=== PATIENT | female | born 1950 | race Caucasian/White ===

== ENCOUNTER → 2018-01-26 10:32 | Outpatient (CLI) | payer BC, SELFPAY ==
--- NOTE | 2018-01-26 10:36 | US_ITS ---
STUDY: SUPERFICIAL ULTRASOUND - LIMITED REASON FOR EXAM: Female, 67 years old. Left axillary lump for one week. TECHNIQUE: A superficial ultrasound was performed with real-time and static dupree-scale imaging. COMPARISON: None. FINDINGS: Adjacent to the axilla corresponding to the palpable abnormality reported by the patient is a 2.2 x 1.8 x 0.9 cm sharply marginated hypoechoic mass slightly more echogenic than the adjacent muscle. No posterior shadowing or posterior enhancement. US/Ext Non Vasc Limited/Soft Tiss IMPRESSION: 2.2 cm palpable mass adjacent to the left axilla probably representing a lymph node or other benign finding. Correlate with clinical exam. Correlate with mammogram if available. Electronically Signed: Jaylen Mendez MD at 4:12 EDT , Service support ,
== END ==
PROVIDERS: Family Provider Internal Medicine; PCP Internal Medicine; Visit Provider Nurse Practitioner Gerontology
DX: R22.32 Localized swelling, mass and lump, left upper limb (principal)
CPT/HCPCS: 76882

== ENCOUNTER → 2018-02-04 08:44 | Outpatient (CLI) | payer MEDICARE, SELFPAY ==
--- NOTE | 2018-02-04 09:04 | BI_ITS ---
MAMMOGRAPHY - UNILATERAL DIAGNOSTIC: LEFT BREAST REASON FOR EXAM: Female, 67 years old. Left axillary mass. PERTINENT HISTORY: Sister with breast cancer. Mother with breast cancer. TECHNIQUE: Digital unilateral breast elpidio (3D mammographic acquisition) in the CC and MLO projections. 2-D mediolateral oblique (MLO) and craniocaudad (CC) views of both breasts were obtained. CAD: Full Field Digital Mammography with Computer Added Detection was performed. COMPARISON: Comparison is made with prior mammogram dated June 13, 2017 and May 30, 2016 as well as prior sonogram of the left axillary region dated January 26, 2018. FINDINGS: Breast Composition: The breasts are heterogeneously dense, which may obscure small masses. There is a 2 cm x 1.6 cm dense lymph node in the left axillary region. This corresponds to the palpable abnormality. A biopsy may be indicated. No other significant abnormalities are identified. BI/DIAG MAMM W/CAD, UNILAT IMPRESSION: 2 cm x 1.6 cm dense lymph node in the left axillary region as described. This corresponds to the palpable abnormality. A biopsy may be indicated. ASSESSMENT CATEGORY: BIRADS Category 4: Suspicious - Biopsy Should Be Considered. A letter regarding these results will be sent to the patient by the facility within 30 days. Approximately 10% of breast cancers are not detected by mammography. A normal mammogram should not delay biopsy of a clinically suspicious abnormality. Electronically Signed: Daniel Phillips MD at 10:33 EDT Tel [phone], Service support ,
== END ==
PROVIDERS: Family Provider Internal Medicine; PCP Internal Medicine; Visit Provider Nurse Practitioner Gerontology
DX: R92.2 Inconclusive mammogram (principal); Z80.3 Family history of malignant neoplasm of breast
CPT/HCPCS: 77061; 77065; G0279

== ENCOUNTER → 2018-02-16 15:23 | Outpatient (CLI) | payer MEDICARE, SELFPAY ==
--- NOTE | 2018-02-16 15:25 | RAD_ITS ---
STUDY: X-RAY CHEST REASON FOR EXAM: Female, 67 years old. Cough. TECHNIQUE: PA and lateral views of the chest. COMPARISON: PA and lateral views of the chest August 07, 2017. FINDINGS: Minimal linear scarring or subsegmental atelectasis seen in the inferior lingula of the left upper lobe. The lungs are otherwise clear and expanded. There is no demonstrated pleural abnormality. Normal size heart. Normal mediastinum and sheri. Normal visualized pulmonary arteries. There is stable minor atherosclerotic calcification of the aortic arch with tortuosity. Normal visualized thoracic spine. There is a stable mild levoscoliosis centered at L1-2. Normal visualized ribs, clavicles, and shoulders. A cluster of surgical clips is again seen in the medial right upper quadrant of the abdomen. RAD/Chest PA and Lateral IMPRESSION: No acute cardiopulmonary disease. Electronically Signed: Rigoberto Calle MD at 16:02 EDT , Service support ,
== END ==
PROVIDERS: Family Provider Internal Medicine; PCP Internal Medicine; Visit Provider Otolaryngology Otolaryngology/Facial Plastic Surgery
DX: R05 Cough (principal)
CPT/HCPCS: 71046

== ENCOUNTER → 2018-02-17 11:31 | Outpatient (CLI) | payer MEDICARE, SELFPAY ==
--- NOTE | 2018-02-17 08:30 | LYMN_PTH ---
PATIENT: LUCIO PINEDA [facility] U[facility][id number] AGE/SX: 75/F ROOM: RE02/17/[address]: Dr. Miko Milian MD : 1950 BED: DIS: SPEC #: [id number] RECD: 02/17/18 11:21 STATUS: HAMZAH REShari #: [id number] CHERELLE: 02/17/18 08:[address]: Miko Milian DEPT: SURGICAL PATHOLOGY RECD BY: Dk Garcia ENTERED: 02/17/18 12:25 SP TYPE: LYMPH NODE OTHR DR: Dr. Flory Hooks, Tissues: LYMPH NODE BIOPSY Procedures: Surgery Specimen Level IV HEADER OPERATION: Ultrasound-guided needle core biopsy left axillary; enlarged lymph node PRE-OP DIAGNOSIS: Enlarged lymph nodes in armpit TISSUE SUBMITTED: Needle core biopsy enlarged lymph node left axilla ISCHEMIC TIME: <30 seconds FIXATION TIME: 11 hours MICROSCOPIC DIAGNOSIS Left axilla, ultrasound-guided needle core biopsy: Fibrofatty tissue with focal minimal chronic inflammation. Focal minimal fat necrosis. No evidence of malignancy. AM:[place] 02/18/18 COMMENT There is no evidence of malignancy. Clinical correlation is suggested. MICROSCOPIC DESCRIPTION Slides are reviewed. GROSS DESCRIPTION Received in fixative is one container labeled with the patient's name and designated left axilla. The specimen consists of multiple irregular and elongated fragments of yellow-white soft tissue that in aggregate measure 1 x 0.3 x <0.1 cm. The specimen is totally submitted in one cassette. / AM:[place] 02/17/18 TC:5 CPT: 49659
== END ==
PROVIDERS: Family Provider Internal Medicine; PCP Internal Medicine; Visit Provider Surgery
DX: R59.0 Localized enlarged lymph nodes (principal)
CPT/HCPCS: 88305

== ENCOUNTER → 2018-07-22 11:03 | Outpatient (CLI) | payer MEDICARE, SELFPAY ==
--- NOTE | 2018-07-22 11:07 | BI_ITS ---
MAMMOGRAPHY - BILATERAL SCREENING REASON FOR EXAM: Female, 68 years old. Routine annual screening examination. PERTINENT HISTORY: Sister with breast cancer. Mother with breast cancer. TECHNIQUE: Digital bilateral breast elpidio (3D mammographic acquisition) in the CC and MLO projections. 2-D mediolateral oblique (MLO) and craniocaudad (CC) views of both breasts were obtained. CAD: Full Field Digital Mammography with Computer Added Detection was performed. COMPARISON: Comparison is made with prior examination June 13, 2017 and prior mammogram of the left breast dated February 04, 2018. FINDINGS: Breast Composition: The breasts are heterogeneously dense, which may obscure small masses. There are no dominant masses or suspicious calcifications. Focal area of architectural distortion is seen in the upper lateral portion of the left breast. The patient will be recalled for additional views including 90 degree lateral and compression spot views of the left breast. No other significant abnormalities are identified. BI/SCREENING MAMM (CAD), BILAT IMPRESSION: Questionable focal area of architectural distortion in the upper lateral portion of the left breast as described. The patient will be recalled for additional views. Recall Side: Left Breast ASSESSMENT CATEGORY: BIRADS Category 0: Incomplete. Need additional imaging evaluation. A letter regarding these results will be sent to the patient by the facility within 30 days. Approximately 10% of breast cancers are not detected by mammography. A normal mammogram should not delay biopsy of a clinically suspicious abnormality. [id number] Electronically Signed: Daniel Phillips MD at 12:47 EDT Tel [phone], Service support ,
--- NOTE | 2018-07-22 11:12 | BD_ITS ---
STUDY: DUAL ENERGY X-RAY ABSORPTIOMETRY / DXA REASON FOR EXAM: Female, 68 years old. Early menopause. No loss of height. TECHNIQUE: Bone Mineral Density (BMD) measurements of lumbar spine and left hip were obtained. The patient is status post right hip replacement. COMPARISON: None. FINDINGS: Lumbar Spine (L1-L4): g/cm2 (0.997) / T-score (-1.5) / Z-score (0.1) Findings are suggestive of osteopenia with a moderate fracture risk. Left Femur Total: g/cm2 (0.817) / T-score (-1.5) / Z-score (-0.1) Left Femoral Neck: g/cm2 (0.820) / T-score (-1.7) / Z-score (0.1) BD/Dexa Bone Density Study IMPRESSION: The patient is considered osteopenic as outlined below according to World Lionel Organization (WHO) criteria with a moderate fracture risk. Reference Information: The T-score is the number of standard deviations above or below the standard which is normal for young adults at their peak bone mineral density. The World Health Organization (WHO) interprets the T-scores as follows: Above -1 Normal bone density Between -1 and -2.5 Osteopenia Equal to / or below -2.5 Osteoporosis As a practical clinical guideline, osteopenia may be graded as follows: Mild -1 through -1.5 Moderate -1.6 through -2.0 Severe -2.1 through -2.4 The Z-score is the number of standard deviations above or below age-matched controls. A Z-score of less than -1.5 would be considered abnormal. References: 1. NIH Osteoporosis and Related Bone Diseases http://www.osteo.org 2. International Society for Clinical Densitometry http://www.iscd.org 3. National Osteoporosis Foundation http://www.nof.org Electronically Signed: Daniel Phillips MD at 13:44 EDT Tel [phone], Service support ,
--- NOTE | 2018-07-22 11:42 | CT_ITS ---
STUDY: LOW DOSE CT LUNG CANCER SCREENING REASON FOR EXAM: Female, 68 years old. 30 pack-year history of smoking. RADIATION DOSAGE (If Supplied By Facility): CTDIvol = ( 2.01 ) mGy, DLP = ( 66.70 ) mGycm TECHNIQUE: No contrast was administered. Low dose technique was utilized (average mAS-38 and kVp 120). 1.25 mm axial source images with a slice interval of 1.25-mm were reconstructed in lung windows. 2.5 mm axial source images with a slice interval of 2.5-mm were reconstructed in lung windows. 5.0 mm axial source images with a slice interval of 5.0-mm were reconstructed in soft tissue windows. Nodule measured using lung windows on PACS and/or independent workstation with automated measurement of minimum and maximum diameter. Nodule measurement reported as average diameter rounded to the nearest whole number. Growth is defined as an increase ins size of greater than 1.5 mm. COMPARISON: Comparison is made with prior CT scan of the chest March 21, 2016. NODULES: No suspicious nodular densities are seen. Mild increased linear markings at the left lung base as well as both lung apices suggestive of scarring. Emphysema: Hyperinflation. Aorta: Atherosclerotic calcification of the aortic arch. Coronary arteries: Calcification of the coronary arteries. Heart: Unremarkable. Pulmonary artery: Unremarkable Mediastinal nodes: Small benign-appearing mediastinal lymph nodes. Other chest and abdominal findings: CT/Low Dose CT Lung Screening IMPRESSION: Lung-RADS category 2 - Continue annual screening with LDCT in 12 months. IMPORTANT NOTES FOR USE: ACR Lung-RADS Version 1.0 Assessment Categories Release Date: February 21, 2014 Category: Coded 0-4 bases on nodule(s) with highest degree of suspicion. Negative screen is defined as categories 1 and 2; a positive screen is defined as categories 3 and 4. Category 3 and 4A nodules that are unchanged on interval CT should be coded as category 2, and individuals returned to screening in 12 months. Category 4X: Category 3 or 4 nodules with additional imaging findings that increase the suspicion of lung cancer, such as spiculation, GGN that doubles in size in 1 year, enlarged lymph notes, etc. Category Modifiers: S (significant finding unrelated to lung cancer) and C (prior history of treated lung cancer) may be added to the 0-4 Lung-RADS Electronically Signed: Daniel Phillips MD at 15:34 EDT Tel [phone], Service support ,
== END ==
PROVIDERS: Family Provider Internal Medicine; PCP Internal Medicine; Visit Provider Internal Medicine
DX: Z12.31 Encounter for screening mammogram for malignant neoplasm of breast (principal); Z78.0 Asymptomatic menopausal state; Z87.891 Personal history of nicotine dependence; M85.80 Other specified disorders of bone density and structure, unspecified site; J44.9 Chronic obstructive pulmonary disease, unspecified
CPT/HCPCS: 77063; 77067; 77080; G0297

== ENCOUNTER → 2018-07-27 13:10 | Outpatient (CLI) | payer MEDICARE, SELFPAY ==
--- NOTE | 2018-07-27 13:13 | US_ITS ---
STUDY: ULTRASOUND BREAST - LEFT REASON FOR EXAM: Female, 68 years old. Abnormal mammogram. TECHNIQUE: Axial and longitudinal images of the LEFT breast were performed with a high resolution ultrasound transducer. COMPARISON: Comparison is made with prior mammogram done earlier today. FINDINGS: LEFT Breast: There is a 5 mm x 6 mm x 6 mm hypoechoic nodular density with the posterior acoustical shadowing at the 1:00 position of the breast at 2 cm from the nipple. A biopsy is recommended. US/Breast Limited Unilateral IMPRESSION: Suspicious nodule at the 1:00 position of the breast at 2 cm from nipple. A biopsy is recommended. ASSESSMENT CATEGORY: BIRADS Category 4: Suspicious - Biopsy Should Be Considered. A letter regarding these results will be sent to the patient by the facility within 30 days. Electronically Signed: Daniel Phillips MD at 15:27 EDT Tel [phone], Service support ,
--- NOTE | 2018-07-27 13:13 | BI_ITS ---
MAMMOGRAPHY - UNILATERAL DIAGNOSTIC: LEFT BREAST REASON FOR EXAM: Female, 68 years old. Abnormal screening mammogram. PERTINENT HISTORY: Sister with breast cancer. Mother with breast cancer. TECHNIQUE: Compression spot views in the MLO and CC projections and 90 degree lateral projection of the left breast were obtained. CAD: Full Field Digital Mammography with Computer Added Detection was performed. COMPARISON: Comparison is made with prior mammogram dated July 22, 2018. FINDINGS: Breast Composition: The breasts are heterogeneously dense, which may obscure small masses. Persistent focal area of architectural distortion in the upper lateral portion of the left breast. Correlation with ultrasound is recommended. No other significant abnormalities are identified. BI/DIAG MAMM W/CAD, UNILAT IMPRESSION: Persistent focal area of architectural distortion in the upper lateral portion of left breast. Correlation with ultrasound is recommended. ASSESSMENT CATEGORY: BIRADS Category 0: Incomplete. Need additional imaging evaluation. A letter regarding these results will be sent to the patient by the facility within 30 days. Approximately 10% of breast cancers are not detected by mammography. A normal mammogram should not delay biopsy of a clinically suspicious abnormality. Electronically Signed: Daniel Phillips MD at 15:26 EDT Tel [phone], Service support ,
== END ==
PROVIDERS: Family Provider Internal Medicine; PCP Internal Medicine; Visit Provider Internal Medicine
DX: R92.2 Inconclusive mammogram (principal); Z80.3 Family history of malignant neoplasm of breast
CPT/HCPCS: 76642; 77065

== ENCOUNTER → 2018-08-01 06:34 | Outpatient (CLI) | payer MEDICARE, SELFPAY ==
--- NOTE | 2018-08-01 | IMM_PTH ---
PATIENT: LUCIO PINEDA LOC: [facility] U#:[id number] AGE/SX: 75/F ROOM: RE08/01/[address]: Dr. Miko Milian MD : 1950 BED: DIS: SPEC #: [id number] RECD: 08/04/18 13:53 STATUS: HAMZAH REQ #: [id number] CHERELLE: 08/01/18 00:[address]: Miko Milian DEPT: IMMUNOHISTOCHEMISTRY RECD BY: Alissa Tabor ENTERED: 08/04/18 13:54 SP TYPE: IMMUNO OTHR DR: Dr. Flory Hooks DO Tissues: Left breast, NOS Procedures: CALPONIN-1 (add) CK5-6 (add) CK8 (add) E-CAD (add) HER2 SREEDHAR (add) KI-67 (add) P53 (add) ND (add) P40 (add) ER (initial) PHYSICIAN & INSTITUTION [place] [id number] SPECIMEN INFORMATION: Tissue Source: Left breast, mammotome needle core biopsy Clinical Info: Abnormal left breast mammogram Specimen Number: [id number] CPT code: 34789, 05269 x6, 07426 x3 METHODOLOGY: Deparaffinized sections of prefer/formalin-fixed tissue or PAP/DQ stained slides are incubated with monoclonal/polyclonal antibodies/oligonucleotide probes. Localization is made via biotin free immunoperoxidase method. Appropriate controls are performed and reacted as expected. Results on target cell population are indicated in the following table: RESULTS: ANTIBODY / CLONE RESULT E-Cad (ECH-6) positive CK8 (87bkdyL06) positive CK5-6 (D5 & 1684) negative Ki-67 (30-9) positive, low P53 (DO-7) negative P40 (BC28) negative Calponin-1 (CD813X) negative MORPHOMETRIC ANALYSIS ER (clone 6F11) >95%, moderate ND (clone 16/1E2) >95%, strong Her-2Neu (clone CB11) 0 The prognostic test for HER2 is performed on formalin-fixed paraffin embedded tissue. A 3+ (positive) staining pattern is defined as intense, homogeneous, complete, circumferential membranous staining in >10% of contiguous tumor cells. A similar weak (2+) staining pattern is interpreted as equivocal. LORIN follow-up testing is recommended for all equivocal cases. Positivity/negativity for ER/ND is reported if > or < 1% of the tumor cells are immuno- reactive, respectively. The ASCO/CAP criteria is used for scoring. Reference: Journal of Clinical Oncology, 2013; 31:0188-6960 & 2010; 16:6100-7110. Duration of fixation: 56.5 Hrs; Sample Adequate: Yes. These assays have not been validated on decalcified tissues. Results should be interpreted with caution given the likelihood of false negativity on decalcified specimens. These tests were developed and their performance characteristics determined by [facility]. They may not have been cleared or approved by the U.S. Food and Drug Administration. The FDA has determined that such clearance or approval is not necessary. INTERPRETATION: Left breast, mammotome needle core biopsy: Invasive ductal carcinoma, nuclear grade 1. Positive for estrogen receptors (favorable prognostic indicator). Positive for progesterone receptors (favorable prognostic indicator). Negative for overexpression of LAH5txf. SJ:[place] 08/05/18
--- NOTE | 2018-08-01 09:50 | BRBX_PTH ---
PATIENT: LUCIO PINEDA [facility] U#:[id number] AGE/SX: 75/F ROOM: RE08/01/[address]: Dr. Miko Milian MD : 1950 BED: DIS: SPEC #: [id number] RECD: 08/01/18 12:09 STATUS: HAMZAH JHONATAN #: [id number] CHERELLE: 08/01/18 09:[address]: Miko Milian DEPT: SURGICAL PATHOLOGY RECD BY: Ed Rodriguez ENTERED: 08/03/18 11:57 SP TYPE: BREAST BX OTHR DR: Dr. Flory Hooks DO Tissues: Left breast, NOS Procedures: Surgery Specimen Level IV HEADER OPERATION: Mammotome needle core biopsy of left breast PRE-OP DIAGNOSIS: Abnormal mammogram of left breast TISSUE SUBMITTED: Left breast biopsy ISCHEMIC TIME: 1 minute FIXATION TIME: 56.5 hours MICROSCOPIC DIAGNOSIS Left breast, mammotome needle core biopsy: Invasive ductal carcinoma, nuclear grade 1 (0.7 cm in greatest dimension and greatest length). See comment. COOKIE:[place] 08/04/18 COMMENT Immunohistochemistry ([id number]) supports the above diagnosis. ER/OK/Ffs5ikf studies are being performed on sections of tumor and the results from this study will be reported separately ([id number]). Please make reference to previous specimen ([id number]) left axilla (large lymph node), ultrasound-guided needle core biopsy with diagnosis of fibrofatty tissue with focal minimal chronic inflammation, fat necrosis and no evidence of malignancy. Case has been reviewed in consultation with Dr. Langley who concurs with the above diagnosis. IDC:AM MICROSCOPIC DESCRIPTION Slides are reviewed. GROSS DESCRIPTION Received in fixative is one container labeled with the patient's name and designated left breast biopsy. The specimen consists of multiple elongated fragments of mejía-yellow fibroadipose tissue that in aggregate measure 2.5 x 1 x 0.1 cm. The entire specimen is submitted in one cassette. / SJ:[place] 08/03/18 TC:0 CPT: 75153
== END ==
PROVIDERS: Family Provider Internal Medicine; PCP Internal Medicine; Referring Provider Surgery; Visit Provider Surgery
DX: R92.8 Other abnormal and inconclusive findings on diagnostic imaging of breast (principal)
CPT/HCPCS: 88305; 88341; 88342

== ENCOUNTER 2018-08-13 07:27 | Day surgery (SDC) | payer MEDICARE, SELFPAY ==
[2018-08-13] VITALS (8 sets, daily range): BP systolic 114–162; BP diastolic 74–93; PULSE 62–71; RESP 16–18; TEMP 36.2–36.4; O2SAT 94–99; BMI 21.7
--- NOTE | 2018-08-13 | IMM_PTH ---
PATIENT: LUCIO PINEDA LOC: [facility] [place] U#:[id number] AGE/SX: 68/F ROOM: RE08/13/[address]: Dr. Miko Milian MD : 1950 BED: DIS: 08/13/2018 SPEC #: [id number] RECD: 08/18/18 14:17 STATUS: HAMZAH REQ #: [id number] CHERELLE: 08/13/18 00:[address]: Miko Milian DEPT: IMMUNOHISTOCHEMISTRY RECD BY: Alissa Tabor ENTERED: 08/18/18 14:18 SP TYPE: IMMUNO OTHR DR: Dr. Flory Hooks, DO Tissues: A - Axillary lymph node, NOS Procedures: CK7 (add) Pankeratin (initial) Pankeratin (add) PHYSICIAN & INSTITUTION [place] [id number] SPECIMEN INFORMATION: Tissue Source: A - Left axillary sentinel lymph node, biopsy Clinical Info: Malignant neoplasm of upper outer quadrant left breast Specimen Number: [id number] A1 & A2 CPT code: 71812, 35099 x3 METHODOLOGY: Deparaffinized sections of prefer/formalin-fixed tissue or PAP/DQ stained slides are incubated with monoclonal/polyclonal antibodies/oligonucleotide probes. Localization is made via biotin free immunoperoxidase method. Appropriate controls are performed and reacted as expected. Results on target cell population are indicated in the following table: RESULTS: ANTIBODY / CLONE RESULT Block A1 AE1-3 (AE1/AE3/PCK26) negative CK7 (OV-TL12/30) negative Block A2 AE1-3 (AE1/AE3/PCK26) negative CK7 (OV-TL12/30) negative These tests were developed and their performance characteristics determined by [facility]. They may not have been cleared or approved by the U.S. Food and Drug Administration. The FDA has determined that such clearance or approval is not necessary. INTERPRETATION: A. Left axillary sentinel lymph node, biopsy: One lymph node, negative for metastatic carcinoma. COOKIE:[place] 08/19/18
--- NOTE | 2018-08-13 | AXNB_PTH ---
PATIENT: LUCIO PINEDA LOC: [facility] [place] U#:[id number] AGE/SX: 68/F ROOM: RE08/13/[address]: Dr. Miko Milian MD : 1950 BED: DIS: 08/13/2018 SPEC #: [id number] RECD: 08/13/18 10:52 STATUS: HAMZAH REQ #: [id number] CHERELLE: 08/13/18 00:[address]: Miko Milian DEPT: SURGICAL PATHOLOGY RECD BY: Alissa Tabor ENTERED: 08/13/18 12:03 SP TYPE: AX NODE BX OTHR DR: Dr. 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 Left axillary sentinel lymph node, biopsy: One lymph node, negative for metastatic carcinoma. B. 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 SJ:[place] 08/13/18 MICROSCOPIC DIAGNOSIS A. Left axillary sentinel lymph node, biopsy: One lymph node, negative for metastatic carcinoma. B. Left breast mass, lumpectomy with needle localization: Invasive ductal carcinoma. See cancer summary below. SJ:[place] 08/19/18 INVASIVE BREAST CANCER SUMMARY: Specimen - partial breast Procedure - excision with wire-guided localization Lymph node sampling - sentinel lymph node Specimen integrity - single intact specimen Specimen size - 7 x 5 x 3 cm Specimen laterality - left Tumor site - upper outer quadrant, as per clinical information Tumor size - 0.9 x 0.5 x 0.5 cm Tumor focality - single focus of invasive carcinoma Macroscopic and Microscopic extent of tumor: Skin - invasive carcinoma does not invade into the dermis or epidermis. Nipple - not applicable Skeletal muscle - no skeletal muscle present. Ductal carcinoma in situ (DCIS) - DCIS is not present. Lobular carcinoma in situ (LCIS) - not identified Histologic type of invasive carcinoma - invasive ductal carcinoma (tubular carcinoma) Histologic Grade ([place] grade): Glandular/tubular differentiation - score 1 Nuclear pleomorphism - score 1 Mitotic count - score 1 Overall grade - 1 (score of 3) Margins - Margins are uninvolved by invasive carcinoma. The invasive carcinoma is 0.1 cm away from the closest medial margin. Treatment effect: Response to presurgical (neoadjuvant) therapy - no known presurgical therapy. Lymph-Vascular invasion - not identified Dermal lymph-vascular invasion - not identified Lymph nodes: Number of sentinel lymph nodes examined - 1 Total number of lymph nodes examined (sentinel and nonsentinel) - 1 Number of lymph nodes with macrometastases, micrometastases and isolated tumor cells - 0 Method of evaluation of sentinel lymph nodes - H & E, multiple levels and IHC. Distant metastasis - not applicable Additional pathologic findings - intraductal hyperplasia without atypia. Changes consistent with previous biopsy site. Ancillary studies - previously performed on section of tumor ([id number] / [id number]). ER - positive (>95%, moderate) OK - positive (>95%, strong) Her2 eneida - negative Her2 by dual LORIN - not performed Microcalcifications - present in both carcinoma and non-neoplastic tissue Clinical history - Please make reference to previous specimen ([id number]), left breast, mammotome needle biopsy with diagnosis of invasive ductal carcinoma. PATHOLOGIC STAGE: pT1b pN0(sn) Mx The above summary is in compliance with [employer] (CAP) Cancer Protocols Checklist and [place] [employer] on Cancer (AJCC), Staging Manual, 8th Ed. MICROSCOPIC DESCRIPTION Slides are reviewed. GROSS DESCRIPTION A - Received fresh for frozen section diagnosis labeled with the patient's name is a specimen designated left axillary sentinel lymph node. The specimen consists of two pieces of mejía fibroadipose tissue measuring 3 x 2 x 1 cm and 1.5 x 1 x 0.1 cm. One large lymph node is identified in the larger piece measuring 3 cm in greatest dimension. The lymph node is submitted entirely for frozen section diagnosis in two cassettes. / SJ:[place] 08/13/18 B - Received fresh for intraoperative consultation labeled with the patient's name is a specimen designated left breast mass. The specimen consists of a piece of fibroadipose tissue measuring 7 x 5 x 3 cm. A piece of skin is noted laterally measuring 0.7 x 0.2 cm. The specimen is oriented as follows: single long - medial, wire - lateral out of skin, double long - posterior. The specimen is inked as follows: anterior - yellow, posterior - black, superior - blue, inferior - green, medial - red and lateral - orange. Serial sections reveal a mejía, indurated mass measuring 0.9 x 0.5 x 0.5 cm. This mass is 0.2 cm away from the closest medial margin. A section of the mass with closest medial margin is submitted for frozen section diagnosis. Biopsy cavity is also noted adjacent to the mass measuring 2 x 1 x 1 cm. Sections of the rest of the specimen reveal mejía-yellow adipose cut surfaces with a scant fibrous area. Deli Cook sections are submitted in 12 cassettes as follows: 1 - frozen section with closest posterior margin, 2 - rest of the tumor mass, 3 - skin, entirely submitted perpendicular lateral and superior margins, 4 - perpendicular inferior, anterior and posterior margins, 5-8 - biopsy cavity adjacent to the tumor, entirely submitted, 9-12 - renewals representative sections from the other area. Sections will be submitted after additional fixation. / SJ:[place] 08/14/18 TC:0 CPT: 15577 x2, 50433 x2, 74897
--- NOTE | 2018-08-13 07:47 | NM_ITS ---
PROCEDURE: NUCLEAR MEDICINE Injection [place] Node - LEFT breast(s). REASON FOR EXAM: Female, 68 years old. Left breast cancer. TECHNIQUE: [place] node localization using radionuclide methods of the LEFT breast(s) was performed following subcutaneous administration of 1.1 mCi of of sulfur colloid Tc-99m. FINDINGS: 1.1 mCi of technetium labeled sulfur colloid was injected subcutaneously in 4 equal aliquots in the upper outer quadrant of the left breast. NM/Lymph Node Injection Only IMPRESSION: 1.1 mCi of Tc labeled sulfur colloid was injected subcutaneously for sentinel node imaging. Electronically Signed: Daniel Phillips MD at 8:38 EDT Tel [phone], Service support ,
--- NOTE | 2018-08-13 10:12 | DCINST_ITS ---
Discharge Diet: No Restrictions Discharge Activity: May Not Drive - for 2-3 days or while taking narcotic pain meds. May shower in (days): 1 Lifting Restrictions: 10 pounds for 1 week. Call your doctor if your incision/area has: Continuous Slow Oozing, Sudden In creased Bleeding Call your doctor if you observe: Fever of 101 or Higher Suture Line Care: Avoid Pulling/Pushing, Avoid Pinching/Bending Remove Dressing in (days):: 1 - Remove bulky dressing tomorrow. May leave any opsite dressing for 3-4 days. Keep dressing in place until your follow-up appointment. Additional Dressing/Incision Instructions:: Remove bulky dressing tomorrow. May leave any opsite dressing for 3-4 days. Keep dressing in place until your follow-up appointment. Allergies/Adverse Reactions: Allergies cephalexin monohydrate [From Keflex] Allergy (Verified 08/10/18 13:35) Swelling levofloxacin [From Levaquin] Allergy (Verified 08/10/18 13:35) Swelling amoxicillin trihydrate [From Augmentin] Adverse Reaction (Verified 08/10/18 13:35) Diarrhea potassium clavulanate [From Augmentin] Adverse Reaction (Verified 08/10/18 13:35) Diarrhea Medications to take at Discharge Acetaminophen/Butalbital/Caffe [Fioricet] 1 - 2 tab PO Q6H PRN PRN 11/18/13 Lactobacil rhamnosus GG 10 billion cell-inulin 200 mg chewable tablet 2 tab PO DAILY 02/13/18 cholecalciferol (vitamin D3) 1,000 unit capsule 5,000 unit PO QDAY 02/13/18 atorvastatin 20 mg tablet 40 mg PO QHS tab 07/30/18 zolpidem 10 mg tablet 10 mg PO QHS PRN PRN 07/30/18 Congaplex 2 cap PO DAILY 08/10/18 Immunomax3 2 cap PO DAILY 08/10/18 Oxycodone HCl/Acetaminophen [Percocet 5/325] 1 - 2 tab PO Q4H PRN PRN 5 Days #30 tab 08/13/18 The following prescriptions were given: Oxycodone HCl/Acetaminophen [Percocet 5/325] 1 - 2 tab PO Q4H PRN PRN 5 Days #30 tab PRN Reason: Pain Primary Care Physician: Flory Hooks DO [Primary Care Provider] -
--- NOTE | 2018-08-13 10:12 | PCM.OPRPT ---
Problem List (1) Malignant neoplasm of upper-outer quadrant of left female breast Status: Acute Qualifiers: Estrogen receptor status: positive Qualified Code(s): C50.412 - Malignant neoplasm of upper-outer quadrant of left female breast; Z17.0 - Estrogen receptor positive status [ER+] Report of Operation Date of Procedure: 08/13/18 Pre-Operative Diagnosis: c50.412 malignant neoplasia of upper outer quadrant of left breast estrogen receptor positive Post-Operative Diagnosis: Same Surgery/Procedure Performed:: 1. Injection of 5 cc of Lymphazurin blue. 2. Ultrasound-guided wire localization of left breast cancer. 3. Partial mastectomy left. 4. Bernice lymph node biopsy left axilla Anesthesiologist: Saud Ramos Drains: none Estimated Blood Loss (mL): <25 cc Description of Procedure: Patient was brought into the operating room. Placed in supine position. Under excellent general anesthetic ultrasound of the right upper quadrant of her left breast revealed the lesion in question. I prepped the skin with alcohol. A Kopan's wire was placed directly through the lesion. It was cut appropriately I then injected 5 cc of Lymphazurin blue circumareolar the on the patient. The breast was then massaged for 5 minutes. The breast and axillary area on the left side were then sterilely prepped and draped in the usual fashion. An incision in the upper outer quadrant of the left breast was made I ellipsed around the previous biopsy site. I used electrocautery went all the way down around the lesion which was posteriorly near the pectoralis major muscle. This was obviously the closest margin from the tumor. I sent it to pathology for a quick frozen section since my x-ray did not reveal the clip that I have placed. Frozen section did confirm adenocarcinoma. And it also confirmed the previous biopsy site.. I then entered the clavipectoral fascia with use of electrocautery. I dissected down identified several blue lymphatics until I got down to a very large blue lymph node. I removed this with the aid of the harmonic dissector. Lolly counter readings were in the high 70s in the axilla and approximately 57-58 outside of the axilla. Nothing else really lit up on the Lolly counter after that. I did a general inspection of the axillary area I felt no other hard suspicious nodules. I saw no other blue lymph nodes. Frozen section on the blue lymph node confirmed it to be a lymph node #1 and #2 no obvious gross signs of metastatic disease. I irrigated out the chest in the axillary area. The wound was brought together with deep dermal stitches of 3-0 Vicryl then a running 4-0 Monocryl. I opted not to leave a drain in. Sterile dressings were applied and the patient tolerated the procedure well. - Admit VTE Documentation VTE Present on Admission: No VTE Mechan Device Prophylaxis: SCD's VTE Pharm Prophylaxis ordered?: No Reason prophylaxis not ordered:: Treatment Not Indicated
[2018-08-13] MEDS: Isosulfan Blue 1% 5 ML Vial (10:14)
--- NOTE | 2018-08-13 10:45 | BI_ITS ---
SURGICAL BREAST SPECIMEN RADIOGRAPH CLINICAL: Document presence of mass in biopsy specimen. FINDINGS: Specimen shows presence of mass. Electronically Signed: Daniel Phillips MD at 11:35 EDT Tel [phone], Service support , BI/Breast Biopsy Specimen
[2018-08-13] MEDS: Bupivacaine Mpf 0.5% 30 ML VIAL (11:19)
[2018-08-13] MEDS: Acetaminophen 325 MG Tablet 650 MG PO (13:11)
[2018-08-13] MEDS: oxyCODONE 5 MG Tablet 10 MG PO (13:12)
== END 2018-08-13 14:47 | disposition home or self-care (01) ==
LOC: SDC 07:29 → AC 07:30
PROVIDERS: Family Provider Internal Medicine; PCP Internal Medicine; Referring Provider Surgery; Visit Provider Surgery
PROC: (CPT 19301; principal; 2018-08-13 09:45)
DX: C50.412 Malignant neoplasm of upper-outer quadrant of left female breast (principal); Z17.0 Estrogen receptor positive status [ER+]; E78.00 Pure hypercholesterolemia, unspecified; F17.200 Nicotine dependence, unspecified, uncomplicated; F41.9 Anxiety disorder, unspecified; Z78.0 Asymptomatic menopausal state; Z79.899 Other long term (current) drug therapy
CPT/HCPCS: 19301; 38525; 38900; 38792; 76098; 88305; 88307; 88331; 88332; 88341; 88342; A9541; J2405; Q9968

== ENCOUNTER → 2018-12-18 15:26 | Outpatient (CLI) | payer MEDICARE, SELFPAY ==
[2018-09-07 13:18] VITALS: BMI 22.1
[2018-11-09 13:17] VITALS: BMI 22.8
== END ==
PROVIDERS: Family Provider Internal Medicine; PCP Internal Medicine; Referring Provider Otolaryngology Otolaryngology/Facial Plastic Surgery; Visit Provider Otolaryngology Otolaryngology/Facial Plastic Surgery
DX: J32.9 Chronic sinusitis, unspecified (principal)
CPT/HCPCS: 87070; 87205

== ENCOUNTER → 2019-03-08 11:17 | Outpatient (CLI) | payer MEDICARE, SELFPAY ==
[2018-09-07 13:18] VITALS: BMI 22.1
[2019-02-10 10:51] VITALS: BMI 22.0
[2019-03-08 12:49] LABS: Progesterone Level 0.26 ng/mL (See Comment); Vitamin B12 879 pg/mL (211-911); Vitamin D,25 Hydroxy 49.5 ng/mL (29.95-100.01)
[2019-03-08 13:32] LABS: Estradiol 20.6 pg/mL; Free T3 2.6 pg/mL (2.18-3.98); T4 Free Direct 0.77 ng/dL (0.76-1.46); Thyroid Stim Hormone (TSH) 0.27 uIU/mL (0.358-3.74)
[2019-03-09 09:39] LABS: CA 15-3 13.3 U/mL (0.0-25.0); CA 27.29 13.1 U/mL (0.0-38.6); Thyroid Peroxidase AB 35 IU/mL (0-34)
== END ==
PROVIDERS: Family Provider Internal Medicine; PCP Internal Medicine; Referring Provider Preventive Medicine Public Health & General Preventive Medicine; Visit Provider Preventive Medicine Public Health & General Preventive Medicine
DX: C50.919 Malignant neoplasm of unspecified site of unspecified female breast (principal); N95.1 Menopausal and female climacteric states; E03.9 Hypothyroidism, unspecified; E55.9 Vitamin D deficiency, unspecified; E34.9 Endocrine disorder, unspecified
CPT/HCPCS: 36415; 82306; 82607; 82670; 82746; 84144; 84403; 84439; 84443; 84481; 86300; 86376

== ENCOUNTER → 2019-10-04 11:22 | Outpatient (CLI) | payer MEDICARE, SELFPAY ==
[2018-09-07 13:18] VITALS: BMI 22.1
[2019-03-23 13:31] VITALS: BMI 21.9
--- NOTE | 2019-10-04 11:47 | CT_ITS ---
STUDY: CT ABDOMEN AND PELVIS WITH CONTRAST REASON FOR EXAM: Female, 69 years old. Left-sided abdominal pain with fever. RADIATION DOSAGE (If Supplied By Facility): CTDIvol = ( 11.23 ) mGy, DLP = ( 472.94 ) mGycm TECHNIQUE: Transaxial images were obtained from the dome of the diaphragm to the symphysis pubis without oral contrast. was administered. Sagittal and coronal images were reconstructed. Individualized dose optimization techniques were used for this CT. COMPARISON: None. FINDINGS: Minimal small bilateral pleural effusions with bibasilar atelectasis. The visualized portions of the heart are within normal limits. Normal liver. There are surgical clips in the gallbladder fossa consistent with a prior cholecystectomy. Normal spleen. Normal pancreas. Normal bilateral adrenal glands. There is a 3.4 cm x 3.6 cm cyst in the peripheral superior aspect of the right kidney. Normal left kidney. There is a left retroaortic renal vein. Mild degree of nonspecific bilateral perinephric stranding. There is a small hiatal hernia. Normal small intestine. There are multiple colonic diverticula consistent with diverticulosis. The patient is status post appendectomy. There is diffuse atherosclerotic calcification of the abdominal aorta, without a demonstrated aneurysm. Normal inferior vena cava. Normal retroperitoneum. Normal urinary bladder. There is absence of the uterus consistent with a prior hysterectomy. Small bilateral benign-appearing lymph nodes. Normal abdominal wall. Prior right total hip replacement. CT/Abdomen/Pelvis WITH Contrast IMPRESSION: Nonspecific bilateral perinephric stranding. Right renal cyst. Electronically Signed: Daniel Phillips, at 15:30 EST , Service support ,
[2019-10-04 11:50] LABS: Absolute Lymphocyte Count 0.96 X10^3/uL (0.83-4.51); Absolute Neutrophil Count 3.1 X10^3/uL (2.0-7.7); Basophil# 0.03 X10^3/uL; Basophil% 0.6 % (0-1); Eosinophil# 0.37 X10^3/uL; Eosinophils% 7.8 % (0-5); Hemoglobin 11.2 g/dL (12.0-15.0); Lymphocyte # 0.96 X10^3/ul (4.0); Lymphocyte % 20.3 % (19-41); Mean Corp Hgb Conc 32.9 g/dL (32-36); Mean Corpuscular Hgb 29.4 pg (27.0-32.0); Mean Corpuscular Volume 89.2 fL (81-99); Mean Platelet Vol. 9.7 fl (6.2-12.0); Monocyte# 0.23 X10^3/uL; Monocyte% 4.9 % (0-10); NRBC Flagged by Analyzer 0 % (0-5); Neutrophil # 3.11 X10^3/uL (2.7-7.7); Neutrophil % 65.8 % (47-70); Platelet Count 235 K/mm3 (150-450); RBC Distribution Width CV 13.4 % (11.6-14.6); Red Blood Count 3.81 M/mm3 (4.2-5.4); White Blood Count 4.7 K/mm3 (4.4-11.0)
[2019-10-04 11:51] LABS: Erythrocyte Sedimentation Rate 22 mm/hr (0-30)
[2019-10-04 12:16] LABS: ALB/GLOB Ratio 0.8 RATIO (0.9-2.4); AST(SGOT) 38 U/L (15-37); Alanine Aminotransfer ALT/SGPT 68 U/L (13-56); Albumin, Serum 2.9 g/dL (3.2-5.0); Alkaline Phosphatase 152 U/L (45-117); Anion Gap 6 (5-15); BUN 12 mg/dL (7-18); BUN/Creat Ratio 13.2 RATIO (10-20); Calcium,Total 8.5 mg/dL (8.5-10.1); Chloride 104 mmol/L (98-107); Creatinine, Serum 0.91 mg/dL (0.55-1.02); EST Glomerular Filtration Rate 65 mL/min (>60); Est Glom Filt Rate - Afr Amer 79 mL/min (>60); Globulin 3.5 g/dL (2.2-4.2); Glucose 94 mg/dL (74-106); Potassium 3.1 mmol/L (3.5-5.1); Protein, Total 6.4 g/dL (6.4-8.2); Sodium Level 140 mmol/L (136-145)
== END ==
PROVIDERS: Family Provider Internal Medicine; PCP Internal Medicine; Referring Provider Nurse Practitioner Gerontology; Visit Provider Nurse Practitioner Gerontology
DX: R10.9 Unspecified abdominal pain (principal)
CPT/HCPCS: 36415; 74177; 80053; 85025; 85652; 86141; Q9967

== ENCOUNTER → 2019-10-06 14:32 | Outpatient (CLI) | payer MEDICARE, SELFPAY ==
[2018-09-07 13:18] VITALS: BMI 22.1
[2019-03-23 13:31] VITALS: BMI 21.9
[2019-10-06 16:35] LABS: Color, Urine Yellow (Yellow); Glucose, Dipstick Normal (Normal); Ketone-Dipstick 5 mg/dl (Negative); Leukocyte Esterase-Dipstick 100 /ul (Negative); Nitrite-Dipstick Negative (Negative); Occult Blood-Urine 10 /ul (Negative); Protein-Dipstick 15 mg/dl (Negative); Specific Gravity, Urine 1.015 (1.002-1.030); Urine Bilirubin Dipstick Negative (Negative); Urine Clarity Clear (Clear); Urine Urobilinogen Normal (Normal); Urine pH 6.5 (5.0 - 8.0)
[2019-10-06 16:57] LABS: Red Blood Cells-Urine 0-5 SEEN /hpf (0-5); Squamous Epithelial Cells - UA 10-25 SEEN /hpf (5-10); White Blood Cells 5-10 SEEN /hpf (0-5)
[2019-10-06 16:58] LABS: Bacteria 1+ /hpf (None Seen); Mucous, Urine 3+ /hpf (<or=2+)
== END ==
PROVIDERS: Family Provider Internal Medicine; PCP Internal Medicine; Referring Provider Otolaryngology Otolaryngology/Facial Plastic Surgery; Visit Provider Otolaryngology Otolaryngology/Facial Plastic Surgery
DX: N05.9 Unspecified nephritic syndrome with unspecified morphologic changes (principal)
CPT/HCPCS: 81001; 87086; 87088; 87186

== ENCOUNTER → 2019-10-13 11:14 | Outpatient (CLI) | payer MEDICARE, SELFPAY ==
[2018-09-07 13:18] VITALS: BMI 22.1
[2019-03-23 13:31] VITALS: BMI 21.9
[2019-10-13 12:32] LABS: Absolute Lymphocyte Count 1.29 X10^3/uL (0.83-4.51); Absolute Neutrophil Count 2.1 X10^3/uL (2.0-7.7); Basophil# 0.06 X10^3/uL; Basophil% 1.5 % (0-1); Eosinophil# 0.11 X10^3/uL; Eosinophils% 2.8 % (0-5); Hematocrit 38.4 % (37-47); Hemoglobin 12.2 g/dL (12.0-15.0); Lymphocyte # 1.29 X10^3/ul (4.0); Lymphocyte % 33.1 % (19-41); Mean Corp Hgb Conc 31.8 g/dL (32-36); Mean Corpuscular Hgb 28.8 pg (27.0-32.0); Mean Corpuscular Volume 90.8 fL (81-99); Mean Platelet Vol. 9.3 fl (6.2-12.0); Monocyte# 0.36 X10^3/uL; Monocyte% 9.2 % (0-10); NRBC Flagged by Analyzer 0 % (0-5); Neutrophil # 2.05 X10^3/uL (2.7-7.7); Neutrophil % 52.6 % (47-70); Platelet Count 381 K/mm3 (150-450); RBC Distribution Width CV 14.2 % (11.6-14.6); RBC Distribution Width SD 47.6 fl (35.1-43.9); Red Blood Count 4.23 M/mm3 (4.2-5.4); White Blood Count 3.9 K/mm3 (4.4-11.0)
[2019-10-13 13:44] LABS: Anion Gap 8 (5-15); BUN 18 mg/dL (7-18); BUN/Creat Ratio 17.6 RATIO (10-20); CRP < 2.90 mg/L (0.0-3.0); Calcium,Total 9.2 mg/dL (8.5-10.1); Chloride 105 mmol/L (98-107); Creatinine, Serum 1.02 mg/dL (0.55-1.02); EST Glomerular Filtration Rate 57 mL/min (>60); Est Glom Filt Rate - Afr Amer 69 mL/min (>60); Glucose 87 mg/dL (74-106); Potassium 3.8 mmol/L (3.5-5.1); Sodium Level 139 mmol/L (136-145)
== END ==
PROVIDERS: Family Provider Internal Medicine; PCP Internal Medicine; Referring Provider Otolaryngology Otolaryngology/Facial Plastic Surgery; Visit Provider Otolaryngology Otolaryngology/Facial Plastic Surgery
DX: J32.9 Chronic sinusitis, unspecified (principal)
CPT/HCPCS: 36415; 80048; 85025; 86140

== ENCOUNTER → 2019-11-05 15:16 | Outpatient (CLI) | payer MEDICARE, SELFPAY ==
[2018-09-07 13:18] VITALS: BMI 22.1
[2019-03-23 13:31] VITALS: BMI 21.9
[2019-11-05 18:26] LABS: Anion Gap 5 (5-15); BUN 18 mg/dL (7-18); BUN/Creat Ratio 21.4 RATIO (10-20); Calcium,Total 9.2 mg/dL (8.5-10.1); Chloride 105 mmol/L (98-107); Cholesterol 255 mg/dL (200); Creatinine, Serum 0.84 mg/dL (0.55-1.02); EST Glomerular Filtration Rate 71 mL/min (>60); Est Glom Filt Rate - Afr Amer 86 mL/min (>60); Glucose 89 mg/dL (74-106); High Density Lipoprotein 46 mg/dL; Potassium 3.5 mmol/L (3.5-5.1); Sodium Level 137 mmol/L (136-145); Thyroid Stim Hormone (TSH) 1.83 uIU/mL (0.358-3.74); Triglycerides 247 mg/dL; Very Low Density Lipoprotein 49 mg/dL (5-40)
== END ==
PROVIDERS: Family Provider Family Medicine; PCP Family Medicine; Referring Provider Family Medicine; Visit Provider Family Medicine
DX: Z00.00 Encounter for general adult medical examination without abnormal findings (principal); E78.49 Other hyperlipidemia; Z77.018 Contact with and (suspected) exposure to other hazardous metals
CPT/HCPCS: 36415; 80048; 80061; 83825; 84443

== ENCOUNTER → 2020-04-10 | Outpatient (CLI) | payer MEDICARE, SELFPAY ==
[2018-09-07 13:18] VITALS: BMI 22.1
[2019-03-23 13:31] VITALS: BMI 21.9
== END | disposition home or self-care (01) ==
LOC: LABSPEC 15:33
PROVIDERS: PCP Family Medicine; Referring Provider Nurse Practitioner Adult Health; Visit Provider Nurse Practitioner Adult Health
DX: B37.3 Candidiasis of vulva and vagina (principal)
CPT/HCPCS: 87070; 87205

== ENCOUNTER → 2020-05-25 | Outpatient (CLI) | payer MEDICARE, SELFPAY ==
[2018-09-07 13:18] VITALS: BMI 22.1
[2019-03-23 13:31] VITALS: BMI 21.9
== END | disposition home or self-care (01) ==
LOC: LABSPEC 13:19
PROVIDERS: PCP Family Medicine; Referring Provider Nurse Practitioner Adult Health; Visit Provider Nurse Practitioner Adult Health
DX: B80 Enterobiasis (principal)
CPT/HCPCS: 87177; 87209

== ENCOUNTER → 2020-08-11 09:03 | Outpatient (CLI) | payer MEDICARE, SELFPAY ==
[2018-09-07 13:18] VITALS: BMI 22.1
[2019-03-23 13:31] VITALS: BMI 21.9
[2020-08-11 10:40] LABS: Vitamin D,25 Hydroxy 51.6 ng/mL
[2020-08-11 10:42] LABS: Anion Gap 4 (5-15); BUN 20 mg/dL (7-18); BUN/Creat Ratio 26.6 RATIO (10-20); Calcium,Total 9.1 mg/dL (8.5-10.1); Chloride 109 mmol/L (98-107); Cholesterol 282 mg/dL (200); Creatinine, Serum 0.75 mg/dL (0.55-1.02); EST Glomerular Filtration Rate 81 mL/min (>60); Est Glom Filt Rate - Afr Amer 98 mL/min (>60); Glucose 102 mg/dL (74-106); High Density Lipoprotein 46 mg/dL; Potassium 4.3 mmol/L (3.5-5.1); Sodium Level 141 mmol/L (136-145); Triglycerides 233 mg/dL; Very Low Density Lipoprotein 47 mg/dL (5-40)
== END ==
PROVIDERS: PCP Family Medicine; Referring Provider Family Medicine; Visit Provider Family Medicine
DX: Z00.00 Encounter for general adult medical examination without abnormal findings (principal); E78.49 Other hyperlipidemia; E55.9 Vitamin D deficiency, unspecified
CPT/HCPCS: 36415; 80048; 80061; 82306

== ENCOUNTER → 2021-01-08 08:58 | Outpatient (CLI) | payer MEDICARE, SELFPAY ==
[2018-09-07 13:18] VITALS: BMI 22.1
[2019-03-23 13:31] VITALS: BMI 21.9
[2021-01-08 10:15] LABS: Vitamin D,25 Hydroxy 74.1 ng/mL
[2021-01-08 10:30] LABS: Anion Gap 4 (5-15); BUN 16 mg/dL (7-18); BUN/Creat Ratio 17.5 RATIO (10-20); Calcium,Total 9.7 mg/dL (8.5-10.1); Chloride 104 mmol/L (98-107); Cholesterol 292 mg/dL (200); Creatinine, Serum 0.92 mg/dL (0.55-1.02); EST Glomerular Filtration Rate 64 mL/min (>60); Est Glom Filt Rate - Afr Amer 78 mL/min (>60); Glucose 116 mg/dL (74-106); High Density Lipoprotein 51 mg/dL; Potassium 3.9 mmol/L (3.5-5.1); Sodium Level 138 mmol/L (136-145); Triglycerides 198 mg/dL; Very Low Density Lipoprotein 40 mg/dL (5-40)
== END ==
PROVIDERS: PCP Family Medicine; Visit Provider Family Medicine
DX: Z00.00 Encounter for general adult medical examination without abnormal findings (principal); E55.9 Vitamin D deficiency, unspecified
CPT/HCPCS: 36415; 80048; 80061; 82306; 84443

== ENCOUNTER → 2021-04-03 12:13 | Outpatient (CLI) | payer MEDICARE, SELFPAY ==
[2018-09-07 13:18] VITALS: BMI 22.1
[2019-03-23 13:31] VITALS: BMI 21.9
[2021-04-03 12:18] LABS: Bacteria 0 SEEN /hpf (None Seen); Red Blood Cells-Urine 0 SEEN /hpf (0-5); Squamous Epithelial Cells - UA 0 SEEN /hpf (5-10); White Blood Cells 0 SEEN /hpf (0-5)
[2021-04-03 14:59] LABS: Absolute Lymphocyte Count 1.01 X10^3/uL (0.83-4.51); Absolute Neutrophil Count 2.5 X10^3/uL (2.0-7.7); Basophil# 0.02 X10^3/uL; Basophil% 0.5 % (0-1); Eosinophil# 0.08 X10^3/uL; Hematocrit 38.4 % (37-47); Hemoglobin 12.3 g/dL (12.0-15.0); Lymphocyte # 1.01 X10^3/ul (0.83-4.51); Lymphocyte % 25.8 % (19-41); Mean Corpuscular Hgb 29.4 pg (27.0-32.0); Mean Corpuscular Volume 91.6 fL (81-99); Mean Platelet Vol. 11.4 fl (6.2-12.0); Monocyte% 7.7 % (0-10); NRBC Flagged by Analyzer 0 % (0-5); Neutrophil % 63.7 % (47-70); Platelet Count 173 K/mm3 (150-450); RBC Distribution Width CV 14.5 % (11.6-14.6); Red Blood Count 4.19 M/mm3 (4.2-5.4); White Blood Count 3.9 K/mm3 (4.4-11.0)
[2021-04-03 15:12] LABS: Color, Urine Yellow (Yellow); Glucose, Dipstick Normal (Normal); Ketone-Dipstick Negative (Negative); Leukocyte Esterase-Dipstick Negative /ul (Negative); Nitrite-Dipstick Negative (Negative); Occult Blood-Urine Negative /ul (Negative); Protein-Dipstick Negative (Negative); Urine Bilirubin Dipstick Negative (Negative); Urine Clarity Clear (Clear); Urine Urobilinogen Normal (Normal)
[2021-04-03 15:21] LABS: Mucous, Urine 1+ /hpf (<or=2+)
[2021-04-03 15:22] LABS: ALB/GLOB Ratio 0.9 RATIO (0.9-2.4); AST(SGOT) 14 U/L (15-37); Alanine Aminotransfer ALT/SGPT 23 U/L (13-56); Albumin, Serum 3.4 g/dL (3.2-5.0); Alkaline Phosphatase 98 U/L (45-117); Anion Gap 6 (5-15); BUN 12 mg/dL (7-18); BUN/Creat Ratio 16.2 RATIO (10-20); Calcium,Total 9.1 mg/dL (8.5-10.1); Chloride 106 mmol/L (98-107); Creatinine, Serum 0.74 mg/dL (0.55-1.02); EST Glomerular Filtration Rate 82 mL/min (>60); Est Glom Filt Rate - Afr Amer 99 mL/min (>60); Globulin 3.7 g/dL (2.2-4.2); Glucose 95 mg/dL (74-106); Potassium 3.9 mmol/L (3.5-5.1); Protein, Total 7.1 g/dL (6.4-8.2); Sodium Level 139 mmol/L (136-145)
== END ==
PROVIDERS: Family Medicine; PCP Family Medicine; Visit Provider Family Medicine
DX: K57.92 Diverticulitis of intestine, part unspecified, without perforation or abscess without bleeding (principal)
CPT/HCPCS: 36415; 80053; 81001; 85025

== ENCOUNTER → 2021-04-03 12:49 | Outpatient (CLI) | payer MEDICARE, SELFPAY ==
[2018-09-07 13:18] VITALS: BMI 22.1
[2019-03-23 13:31] VITALS: BMI 21.9
[2021-04-03 15:16] LABS: CREATININE FINGERSTICK 0.9 mg/dL (0.55-1.02); EGFR FINGERSTICK > 60.0000 mL/min (>60)
--- NOTE | 2021-04-03 15:16 | CT_ITS ---
STUDY: CT ABDOMEN AND PELVIS WITH CONTRAST REASON FOR EXAM: Female, 70 years old. DIVERTICULITIS RADIATION DOSAGE (If Supplied By Facility): CTDIvol = ( 15.08 ) mGy, DLP = ( 529.53 ) mGycm TECHNIQUE: Transaxial images were obtained from the dome of the diaphragm to the symphysis pubis with oral contrast. Oral and amp; IV Gastrografin and amp; 100mL Isovue-300 was administered. Sagittal and coronal images were reconstructed. Individualized dose optimization techniques were used for this CT. COMPARISON: Comparison is made with prior study dated 10/04/2019. FINDINGS: The visualized lung bases are unremarkable. The visualized portions of the heart are within normal limits. Normal liver. There are surgical clips in the gallbladder fossa consistent with a prior cholecystectomy. Normal spleen. Normal pancreas. Normal bilateral adrenal glands. There is a 3.8 cm x 3.7 cm cyst in the upper lateral aspect of the right kidney. Normal left kidney. Normal visualized stomach. Normal small intestine. There is diverticulosis, with mild thickening of the colon wall, and mild pericolonic inflammation changes consistent with mild reactive acute diverticulitis. The patient is status post appendectomy. There is scattered atherosclerotic calcification of the abdominal aorta, without a demonstrated aneurysm. Normal inferior vena cava. Normal retroperitoneum. Normal urinary bladder. There is absence of the uterus consistent with a prior hysterectomy. There is a small umbilical hernia containing fat. The patient is status post left total hip replacement. CT/Abdomen/Pelvis WITH Contrast IMPRESSION: Findings in keeping with a mild degree of sigmoid diverticulitis. Stable right renal cyst. Electronically Signed: Daniel Phillips MD at 15:34 EDT , Service support ,
== END ==
PROVIDERS: PCP Family Medicine; Referring Provider Family Medicine; Visit Provider Family Medicine
DX: Z01.812 Encounter for preprocedural laboratory examination (principal); K57.92 Diverticulitis of intestine, part unspecified, without perforation or abscess without bleeding
CPT/HCPCS: 36415; 74177; 80053; 81001; 85025; Q9967

== ENCOUNTER → 2021-06-08 11:43 | Outpatient (CLI) | payer MEDICARE, SELFPAY ==
[2018-09-07 13:18] VITALS: BMI 22.1
[2019-03-23 13:31] VITALS: BMI 21.9
--- NOTE | 2021-06-08 14:10 | CT_ITS ---
STUDY: CT ABDOMEN AND PELVIS WITH CONTRAST REASON FOR EXAM: Female, 70 years old. ABD PAIN RADIATION DOSAGE (If Supplied By Facility): CTDIvol = ( 21.05 ) mGy, DLP = ( 634.14 ) mGycm TECHNIQUE: Transaxial images were obtained from the dome of the diaphragm to the symphysis pubis with oral contrast. Oral and amp; IV Gastrografin and amp; 100mL Isovue-300 was administered. Sagittal and coronal images were reconstructed. Individualized dose optimization techniques were used for this CT. COMPARISON: Comparison is made with prior study dated 04/03/2021. FINDINGS: The visualized lung bases are unremarkable. The visualized portions of the heart are within normal limits. Normal liver. There are surgical clips in the gallbladder fossa consistent with a prior cholecystectomy. Normal spleen. Normal pancreas. Normal bilateral adrenal glands. There is a 3.9 cm by 3.6 cm cyst in the upper midportion of the right kidney. Normal left kidney. Normal visualized stomach. Normal small intestine. Moderate amount of fecal material is seen in the right hemicolon. There are multiple colonic diverticula consistent with diverticulosis. The patient is status post appendectomy. Normal abdominal aorta. Normal inferior vena cava. Normal retroperitoneum. Normal urinary bladder. There is absence of the uterus consistent with a prior hysterectomy. There is a small umbilical hernia containing fat. Once again, the patient is status post right hip replacement. CT/Abdomen/Pelvis WITH Contrast IMPRESSION: Moderate amount of fecal material is seen in the right hemicolon. Sigmoid diverticulosis. Electronically Signed: Daniel Phillips MD at 14:46 EDT , Service support ,
[2021-06-08 14:11] LABS: CREATININE FINGERSTICK 0.9 mg/dL (0.55-1.02); EGFR FINGERSTICK > 60.0000 mL/min (>60)
[2021-06-08 15:36] LABS: Absolute Neutrophil Count 3.1 X10^3/uL (2.0-7.7); Basophil# 0.02 X10^3/uL; Basophil% 0.4 % (0-1); Eosinophil# 0.12 X10^3/uL; Eosinophils% 2.5 % (0-5); Hematocrit 40.4 % (37-47); Hemoglobin 13.3 g/dL (12.0-15.0); Lymphocyte % 24.8 % (19-41); Mean Corp Hgb Conc 32.9 g/dL (32-36); Mean Corpuscular Hgb 29.2 pg (27.0-32.0); Mean Corpuscular Volume 88.6 fL (81-99); Mean Platelet Vol. 9.9 fl (6.2-12.0); Monocyte# 0.33 X10^3/uL; Monocyte% 6.8 % (0-10); NRBC Flagged by Analyzer 0 % (0-5); Neutrophil # 3.13 X10^3/uL (2.7-7.7); Neutrophil % 64.9 % (47-70); Platelet Count 246 K/mm3 (150-450); RBC Distribution Width SD 45.2 fl (35.1-43.9); Red Blood Count 4.56 M/mm3 (4.2-5.4); White Blood Count 4.8 K/mm3 (4.4-11.0)
[2021-06-08 16:16] LABS: ALB/GLOB Ratio 1.1 RATIO (0.9-2.4); AST(SGOT) 17 U/L (15-37); Alanine Aminotransfer ALT/SGPT 26 U/L (13-56); Albumin, Serum 3.7 g/dL (3.2-5.0); Alkaline Phosphatase 99 U/L (45-117); Anion Gap 3 (5-15); BUN 16 mg/dL (7-18); BUN/Creat Ratio 24.3 RATIO (10-20); Calcium,Total 9.1 mg/dL (8.5-10.1); Chloride 103 mmol/L (98-107); Creatinine, Serum 0.66 mg/dL (0.55-1.02); EST Glomerular Filtration Rate 94 mL/min (>60); Est Glom Filt Rate - Afr Amer 114 mL/min (>60); Globulin 3.4 g/dL (2.2-4.2); Glucose 76 mg/dL (74-106); Potassium 3.6 mmol/L (3.5-5.1); Protein, Total 7.1 g/dL (6.4-8.2); Sodium Level 136 mmol/L (136-145)
== END ==
PROVIDERS: PCP Family Medicine; Visit Provider Internal Medicine Gastroenterology
DX: K57.32 Diverticulitis of large intestine without perforation or abscess without bleeding (principal); R10.84 Generalized abdominal pain
CPT/HCPCS: 36415; 74177; 80053; 85025; Q9967